=== PATIENT | male | born 1975 | race Caucasian/White ===

== ENCOUNTER 2019-10-02 19:05 | Emergency (ER) | payer OTHER ==
[~2019-10-02] VITALS: Ht 172.7 cm; Wt 99.8 kg
[2019-10-03] MEDS ORDERED: KETO10TA2 PO (02:10)
== END 2019-10-03 03:43 ==
LOC: ER 19:05 → EDSEX 19:11 → ER 19:11
DX: R10.32 Left lower quadrant pain (principal); N20.0 Calculus of kidney